=== PATIENT | male | born 1970 | race American Indian/Alaskan Native ===

== ENCOUNTER 2016-11-24 01:14 | Emergency (ER) | payer OTHER, BC ==
[2016-11-24 01:34] VITALS: BP 128/78; PULSE 61; RESP 20; TEMP 97.7; O2SAT 96
--- NOTE | 2016-11-24 02:35 | C.PDOC ---
History Of Present Illness A 46 y/o M presents to the ER c/o left trapezius muscle tenderness and paresthesia that radiates to the left arm for 3 days. 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 Denies weakness to the left arm, fever, chills, trauma, or any other complaints. Patient reports taking occasional Aleve, applying ice and hot, and taking long hot showers. Time Seen by Provider: 11/24/16 02:25 Chief Complaint (Nursing): Upper Extremity Problem/Injury History Per: Patient History/Exam Limitations: no limitations Onset/Duration Of Symptoms: Days (3) Current Symptoms Are (Timing): Still Present Quality: "Pain" Severity: Mild Recent travel outside of the [place]: No Additional History Per: Patient Past Medical History Reviewed: Historical Data, Nursing Documentation, Vital Signs Vital Signs: Last Vital Signs Temp 97.7 F 11/24/16 01:28 Pulse 61 11/24/16 01:28 Resp 20 11/24/16 01:28 BP 128/78 11/24/16 01:28 Pulse Ox 96 11/24/16 05:12 Family History: States: Unknown Family Hx - Social History Hx Alcohol Use: No Hx Substance Use: No - Immunization History Hx Tetanus Toxoid Vaccination: No Hx Influenza Vaccination: No Hx Pneumococcal Vaccination: No Review Of Systems Except As Marked, All Systems Reviewed And Found Negative. Constitutional: Negative for: Fever, Chills, Other (Trauma) Musculoskeletal: Positive for: Arm Pain (Left), Back Pain (trapezius) Neurological: Negative for: Weakness Physical Exam - Physical Exam Appears: Non-toxic, No Acute Distress, Other (Large, muscular black male) Skin: Warm, Dry Head: Atraumatic, Normacephalic Cardiovascular: Rhythm Regular Respiratory: Normal Breath Sounds, No Rales, No Rhonchi, No Wheezing Extremity: Tenderness (Tenderness and swelling to the left trapezius area), No Deformity, No Swelling Neurological/Psych: Oriented x3, Normal Speech, Normal Cognition, Normal Motor, Normal Sensation, Other (No focal deficit to the left extremities) Gait: Steady ED Course And Treatment O2 Sat by Pulse Oximetry: 96 (RA) Pulse Ox Interpretation: Normal Medical Decision Making Medical Decision Making: Impression: A 46 y/o M presents to the ER c/o left trapezius tenderness and paresthesia that radiates to the left arm for 3 days. Plans: * Motrin obvious L trapezius strain/sprain with concordant L arm mild parastesia but no dysfunction. worse with heat/icy hot therapy ice and nsaids educated ortho f/u for MRI PRN Disposition Doctor Will See Patient In The: Office Counseled Patient/Family Regarding: Studies Performed, Diagnosis - Disposition Referrals: Juan R Rahman MD [Staff Provider] - Bea Mauricio MD [Staff Provider] - Disposition: HOME/ ROUTINE Disposition Time: 02:34 Condition: GOOD Additional Instructions: ice packs 1/2 hour per hour, never anything hot Motrin 400-600 mg every 6 hours as needed Pepcid 20 mg @ night to prevent stomach irritation from the Motrin Follow-up with your PMD or Dr. Mauricio- Orthopedics- as needed No heavy lifting for 1 week Instructions: Muscle Strain (ED), Musculoskeletal Pain (ED) Forms: [facility] ([place]), Work Excuse - Clinical Impression Clinical Impression: Muscle strain, Arm paresthesia, left - Scribe Statement The provider has reviewed the documentation as recorded by the Scribjoshua gomes All medical record entries made by the Scribjoshua were at my direction and personally dictated by me. I have reviewed the chart and agree that the record accurately reflects my personal performance of the history, physical exam, medical decision making, and the department course for this patient. I have also personally directed, reviewed, and agree with the discharge instructions and disposition.
== END 2016-11-24 02:50 | disposition home or self-care (01) ==
LOC: EDSEX 01:14 → C.ER 01:14
DX: S29.012A Strain of muscle and tendon of back wall of thorax, initial encounter (principal); X50.0XXA Overexertion from strenuous movement or load, initial encounter; R20.9 Unspecified disturbances of skin sensation